=== PATIENT | male | born 1950 | race Two or more races ===

== ENCOUNTER 2020-02-24 05:11 | Emergency (ER) | payer BC, OTHER ==
[~2020-02-24] VITALS: Ht 175.3 cm; Wt 83.0 kg
[2020-02-24 07:41] LABS: Hemoglobin 15.1 g/dL (13.5-17.5); Mean Corpuscular Hemoglobin 29.6 pg (28.0-32.0); Mean Corpuscular Volume 84.7 fL (80.0-100.0); Platelet Count (auto) 596 10^3/uL (140-450); Red Blood Cells 5.08 10^6/uL (4.5-5.90); Red Cell Distribution Width 13.6 % (11.8-14.3); White Blood Cell 10.6 10^3/uL (4.4-10.8)
[2020-02-24 07:46] LABS: Basophils % (manual) 0 (0.0-2.0); Blast Cells 0; Eosinophils % (manual) 0 (0-7); Metamyelocytes % 0; Myelocytes % 0; Promyelocytes % 0; Reactive Lymphocytes 0
[2020-02-24 07:57] LABS: INR 1.07 (0.9-1.15); Partial Thromboplastin Time 29.2 sec (23.0-31.2)
[2020-02-24 08:59] LABS: Band Neutrophils % (manual) 5; Lymphocytes % (manual) 13 (10.0-50.0); Monocytes % (manual) 15 (0-12)
[2020-02-24 09:38] LABS: Alanine Aminotransferase 110 U/L (16-61); Albumin 2.4 g/dL (3.4-5.0); Anion Gap 6 (5-15); Blood Urea Nitrogen 38 mg/dL (7-18); Carbon Dioxide 24 mmol/L (21-32); Chloride 95 mmol/L (98-107); Glucose 158 mg/dL (74-106); Magnesium 2.6 mg/dL (1.6-2.6); Sodium 125 mmol/L (136-145)
[2020-02-24 09:44] LABS: Alkaline Phosphatase 117 U/L (45-117); Aspartate Aminotransferase 47 U/L (15-37); BUN/Creatinine Ratio 23.5; Bilirubin, Total 0.8 mg/dL (0.2-1.0); GFR African American 54 mL/min; GFR Non-African American 45 mL/min; Total Protein 7.2 g/dL (6.4-8.2)
[2020-02-24 14:50] VITALS: BP 109/76
== END 2020-02-24 16:01 | disposition home or self-care (01) ==
LOC: ER 05:11 → EDBD 05:11 → ER 16:01
DX: J85.2 Abscess of lung without pneumonia (principal); R06.02 Shortness of breath; J44.9 Chronic obstructive pulmonary disease, unspecified
CPT/HCPCS: 36415; 71045; 71250; 80053; 83735; 83880; 84484; 85007; 85027; 85379; 85610; 85730